=== PATIENT | male | born 1965 | race Caucasian/White ===

== ENCOUNTER 2018-09-08 19:46 | Emergency (ER) | payer OTHER, SELFPAY ==
[2018-09-08 19:50] VITALS: BP 143/91; PULSE 85; PULSE 88; RESP 17; TEMP 36.3; O2SAT 95; BMI 31.6
--- NOTE | 2018-09-08 19:54 | ED.RN ---
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
--- NOTE | 2018-09-08 20:36 | ED.DEP ---
ED Disposition - Plan for ED Patient: Instructions: ED Concussion Referrals: Corporate,[facility] [GROUP OF PHYSICIANS] -
--- NOTE | 2018-09-08 20:37 | DCINST.ED_ITS ---
ED Disposition - Plan for ED Patient: Instructions: ED Concussion Referrals: Corporate,[facility] [GROUP OF PHYSICIANS] -
[2018-09-08 20:55] VITALS: BP 136/76; PULSE 76; RESP 18; O2SAT 98
--- NOTE | 2018-09-08 20:55 | ED.RN ---
PT CLARIFIED WITH EMPLOYER THAT HE DOES NOT NEED DRUG TESTING.
== END 2018-09-08 20:56 | disposition home or self-care (01) ==
LOC: ED 20:39
PROVIDERS: Emergency Provider Emergency Medicine
DX: S06.0X0A Concussion without loss of consciousness, initial encounter (principal); W22.8XXA Striking against or struck by other objects, initial encounter; Z87.891 Personal history of nicotine dependence
CPT/HCPCS: 99282

== ENCOUNTER 2018-09-30 16:27 | Emergency (ER) | payer BC, SELFPAY ==
[2018-09-30 16:28] VITALS: BP 147/101; PULSE 83; RESP 16; TEMP 37.4; O2SAT 95; BMI 30.8
--- NOTE | 2018-09-30 16:58 | ED.VIS.GEN ---
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 no allergy sx, cp, sob, peripheral edema. Narrative: Patient states for couple weeks he has had occasional bouts of coughing fits where he has trouble stopping coughing. Today was the worst, he was at work when it occurred, he works at [employer] and not in an industrial setting. His episode lasted 3-5 minutes, he had an episode of emesis associated with gagging because of inability to stop coughing. He denies any shortness of breath in the past couple weeks, or dyspnea with exertion or orthopnea. No peripheral swelling. No chest pains. His cough is been nonproductive when it occurs, which is not every day. He denies any sneezing, watery eyes, redness, nasal congestion, sore throat, earache. He states he accidentally neglected to refill his blood pressure medicine and has not taken it in 1 to 2 months. When he was seen by the house physician today, they checked his blood pressure, it was in the 140s, he seemed malaised and they sent him to the ER for further evaluation. He has a history of smoking long ago, he states for 10 years or less, he does not think he smoked very much per day, sometimes they were cigars, he states I did not like to inhale. 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 Saw his PCP at a routine visit yesterday and forgot to mention these coughing issues. States he used to be on an BASHIR inhibitor and it was discontinued as a result of coughing, to some type of blood pressure medicine that ends in sartan, suggesting an ARB, that he is on now but has missed. - Past Medical History (1) HTN (hypertension) Status: Chronic (2) Hyperlipidemia Status: Chronic (3) Prediabetes Status: Chronic Past Medical History - Allergies and Home Meds Allergies/Adverse Reactions: Allergies No Known Allergies Allergy (Verified 09/30/18 16:31) Primary Care Physician: [facility] Doctor,Out of [Primary Care Provider] - 3-5 Days if not improving ([facility]) Smoking Status: Former smoker Alcohol: None Drugs: None Review of Systems General: Denies: Chills, Fever, Sweats Eyes: Denies: Visual changes - bilaterally, Diplopia ENT: Denies: Bilateral ear pain, Rhinorrhea, Sore throat Cardiovascular: Denies: Chest pain, Palpitations Respiratory: Reports: Cough. Denies: Dyspnea, Dyspnea on exertion, Orthopnea, Paroxysmal nocturnal dyspnea Gastrointestinal: Denies: Abdominal pain, Nausea, Vomiting, Diarrhea, Melena, Hematochezia Genitourinary: Denies: Dysuria, Hematuria, Frequency Musculoskeletal: Denies: Myalgias, Arthralgias, Neck pain, Back pain, Swelling, Extremity Pain Skin: Denies: Rash, Wounds Neurological: Denies: Headache, Weakness, Numbness Physical Exam Vital Signs/Narrative: Vital Signs Temp Pulse Resp BP Pulse Ox 09/30/18 16:28 99.4 F H 83 16 147/101 H 95 Inital Vital Signs reviewed: Yes General: Well nourished, Well developed, No Acute Distress Head: Normocephalic, Atraumatic Eyes: Perrl, EOMI ENT: Moist mucous membranes, No rhinorrhea, TM's clear. Negative for: Nasal congestion, Sinus tenderness Neck: Supple, Nontender, No lymphadenopathy - including no palpable Virchow's nodes, No JVD Cardiovascular: Regular rate, Regular rhythm, No murmurs Respiratory: No distress, CTA bilaterally, Chest nontender Back: Nontender, Normal Inspection Extremities: Nontender, No edema. Negative for: Calf Tenderness Skin: Normal color, No rash, No Trauma Neurological: Alert, Oriented x3, Cranial nerves II-XII grossly intact, Normal Strength, Normal Sensation Psychological: Normal affect, Normal Mood Diagnostic/Tx/Re-eval Clinical Impression(s) from Imaging Studies Chest X-Ray 09/30/18 17:10 IMPRESSION: No acute cardiopulmonary disease. Electronically Signed: Emanuel Bean DO at 17:23 EDT Tel [phone], Service support , - Medical Decision Making Chest x-ray is unremarkable. There is no sign of mediastinal fullness, mass, infiltrate. I do not think he is having any acute coronary event or decompensated congestive heart failure. I think he is safe to be discharged to follow-up with his primary care doctor for persistent symptoms. He is comfortable with this plan. Differential includes viral infection, allergic phenomena, environmental irritant in addition to mass, other chronic lung diseases. ED Disposition - Plan for ED Patient: Disposition: Home or Assisted Living Diagnosis: Cough Instructions: ED URI Viral Referrals: [facility] Doctor,Out of [Primary Care Provider] - 3-5 Days if not improving ([facility])
--- NOTE | 2018-09-30 17:02 | ED.DCSUM_ITS ---
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 no allergy sx, cp, sob, peripheral edema. Narrative: Patient states for couple weeks he has had occasional bouts of coughing fits where he has trouble stopping coughing. Today was the worst, he was at work when it occurred, he works at [employer] and not in an industrial setting. His episode lasted 3-5 minutes, he had an episode of emesis associated with gagging because of inability to stop coughing. He denies any shortness of breath in the past couple weeks, or dyspnea with exertion or orthopnea. No peripheral swelling. No chest pains. His cough is been nonproductive when it occurs, which is not every day. He denies any sneezing, watery eyes, redness, nasal congestion, sore throat, earache. He states he accidentally neglected to refill his blood pressure medicine and has not taken it in 1 to 2 months. When he was seen by the house physician today, they checked his blood pressure, it was in the 140s, he seemed malaised and they sent him to the ER for further evaluation. He has a history of smoking long ago, he states for 10 years or less, he does not think he smoked very much per day, sometimes they were cigars, he states I did not like to inhale. 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 Saw his PCP at a routine visit yesterday and forgot to mention these coughing issues. States he used to be on an BASHIR inhibitor and it was discontinued as a result of coughing, to some type of blood pressure medicine that ends in sartan, suggesting an ARB, that he is on now but has missed. - Past Medical History (1) HTN (hypertension) Status: Chronic (2) Hyperlipidemia Status: Chronic (3) Prediabetes Status: Chronic Past Medical History - Allergies and Home Meds Allergies/Adverse Reactions: Allergies No Known Allergies Allergy (Verified 09/30/18 16:31) Primary Care Physician: [facility] Doctor,Out of [Primary Care Provider] - 3-5 Days if not improving ([facility]) Smoking Status: Former smoker Alcohol: None Drugs: None Review of Systems General: Denies: Chills, Fever, Sweats Eyes: Denies: Visual changes - bilaterally, Diplopia ENT: Denies: Bilateral ear pain, Rhinorrhea, Sore throat Cardiovascular: Denies: Chest pain, Palpitations Respiratory: Reports: Cough. Denies: Dyspnea, Dyspnea on exertion, Orthopnea, Paroxysmal nocturnal dyspnea Gastrointestinal: Denies: Abdominal pain, Nausea, Vomiting, Diarrhea, Melena, Hematochezia Genitourinary: Denies: Dysuria, Hematuria, Frequency Musculoskeletal: Denies: Myalgias, Arthralgias, Neck pain, Back pain, Swelling, Extremity Pain Skin: Denies: Rash, Wounds Neurological: Denies: Headache, Weakness, Numbness Physical Exam Vital Signs/Narrative: Vital Signs Temp Pulse Resp BP Pulse Ox 09/30/18 16:28 99.4 F H 83 16 147/101 H 95 Inital Vital Signs reviewed: Yes General: Well nourished, Well developed, No Acute Distress Head: Normocephalic, Atraumatic Eyes: Perrl, EOMI ENT: Moist mucous membranes, No rhinorrhea, TM's clear. Negative for: Nasal congestion, Sinus tenderness Neck: Supple, Nontender, No lymphadenopathy - including no palpable Virchow's nodes, No JVD Cardiovascular: Regular rate, Regular rhythm, No murmurs Respiratory: No distress, CTA bilaterally, Chest nontender Back: Nontender, Normal Inspection Extremities: Nontender, No edema. Negative for: Calf Tenderness Skin: Normal color, No rash, No Trauma Neurological: Alert, Oriented x3, Cranial nerves II-XII grossly intact, Normal Strength, Normal Sensation Psychological: Normal affect, Normal Mood Diagnostic/Tx/Re-eval Clinical Impression(s) from Imaging Studies Chest X-Ray 09/30/18 17:10 IMPRESSION: No acute cardiopulmonary disease. Electronically Signed: Emanuel Bean DO at 17:23 EDT Tel [phone], Service support , - Medical Decision Making Chest x-ray is unremarkable. There is no sign of mediastinal fullness, mass, infiltrate. I do not think he is having any acute coronary event or decompensated congestive heart failure. I think he is safe to be discharged to follow-up with his primary care doctor for persistent symptoms. He is comfortable with this plan. Differential includes viral infection, allergic phenomena, environmental irritant in addition to mass, other chronic lung diseases. ED Disposition - Plan for ED Patient: Disposition: Home or Assisted Living Diagnosis: Cough Instructions: ED URI Viral Referrals: [facility] Doctor,Out of [Primary Care Provider] - 3-5 Days if not improving ([facility])
[2018-09-30 17:09] VITALS: O2SAT 96
--- NOTE | 2018-09-30 17:10 | RAD_ITS ---
STUDY: X-RAY CHEST REASON FOR EXAM: Male, 53 years old. Cough. TECHNIQUE: PA and lateral views of the chest. COMPARISON: February 09, 2016. FINDINGS: The lungs are clear and expanded. There is no demonstrated pleural abnormality. Normal size heart. Normal mediastinum and david. Normal visualized pulmonary arteries. Normal visualized aortic arch and descending thoracic aorta. Normal visualized thoracic spine. Normal visualized ribs, clavicles, and shoulders. There is no demonstrated abnormality of the visualized soft tissue structures of the upper abdomen. RAD/Chest PA and Lateral IMPRESSION: No acute cardiopulmonary disease. Electronically Signed: Emanuel Bean DO at 17:23 EDT Tel [phone], Service support ,
--- NOTE | 2018-09-30 18:16 | ED.RN ---
DISCHARGE INSTRUCTIONS GIVEN TO AND REVIEWED WITH PATIENT, PATIENT DENIES QUESTIONS OR CONCERNS AND VOICES UNDERSTANDING OF DISHCARGE INSTRUCTIONS. PT AMBULATES OUT OF ROOM WITHOUT DIFFICULTY.
== END 2018-09-30 18:17 | disposition home or self-care (01) ==
PROVIDERS: Emergency Provider Emergency Medicine
DX: R05 Cough (principal); I10 Essential (primary) hypertension; E78.5 Hyperlipidemia, unspecified; R73.03 Prediabetes; Z87.891 Personal history of nicotine dependence
CPT/HCPCS: 71046; 99282

== ENCOUNTER 2020-01-10 08:44 | Outpatient (RCR) | payer OTHER, SELFPAY ==
[2019-12-19 15:30] VITALS: BMI 30.8
--- NOTE | 2020-01-11 07:23 | HP.FCE ---
Floor (Occasional 1-33% of Day): 100# Floor (Frequent 34-66% of Day): 50# Floor (Constant 67-100% of Day): 20# Floor PDL: Heavy Knee (Occasional 1-33% of Day): 100# Knee (Frequent 34-66% of Day): 50# Knee (Constant 67-100% of Day): 20# Knee PDL: Heavy Waist (Occasional 1-33% of Day): 100# Waist (Frequent 34-66% of Day): 50# Waist (Constant 67-100% of Day): 20# Waist PDL: Heavy Shoulder (Occasional 1-33% of Day): 55# Shoulder (Frequent 34-66% of Day): 27# Shoulder (Constant 67-100% of Day): 12# Shoulder PDL: Medium Overhead (Occasional 1-33% of Day): 45# Overhead (Frequent 34-66% of Day): 22# Overhead (Constant 67-100% of Day): 9# Overhead PDL: Medium Comments: Pt demo good lifting mechanics with lift wt. and carry Bending: Frequent Ability (34-66% of day) Squatting: Frequent Ability (34-66% of day) Reaching out: Frequent Ability (34-66% of day) Reaching up: Frequent Ability (34-66% of day) Walking: Frequent Ability (34-66% of day) Standing: Frequent Ability (34-66% of day) Duration Sedentary Sedentary Light Light Light Medium Medium Medium Heavy Very Heavy Heavy Occasional (0-33% of day) Frequent (34-66% of day) Constant (67-100% of day) 10 # Negligible Negligible 15 # 8 # Negligible 20 # 10# Negli. 35 # 18 # 7 # 50 # 25 # 10 # 75 # 100 # >100 # 38 # 50 # >50 # 15 # 20 # >20 # Height: 1.78 m Weight:: 104.326 kg Hand Dominance: Right Medical History Including Restrictions: This 54-year-old male reports he does not know family hx as he was adopted. pt states he takes medication for high blood pressure and cholesterol. pt reports he does not have any further medical condition. Pt states he was sent to the [facility] because his work was worried about his mental status, possible dehydrated. pt states he feels he is in good health. Diagnoses: High blood pressure. Baltazar cholesterol. eczema Symptoms: Denies Pain: 0/10 Work History: This 54-year-old male was seen for FCE. pt states he works for the [employer]. Pt states he has worked there 4 years. 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 pt states he helps assist keeping cottages organizes, and kids on tasks. pt states he monitors choirs the children perform and keeps track, so the boys get allowance at the end of the month. He oversees money for the kids- might plan movie night. pt states he works 40 hours a week- states his normal shift is 2:30-10:30pm Behavioral: pt speaking quickly during assessment, picking at his left wrist as his eczema is flaring up. pt rocking back and forth. Pt did express that he was a little anxious. ADLS: This 54-year-old male reports he lives with his and two sons in two story home. Pt states he is ind. with ADLs and IADls. Pt reports he drives ind. pt states he does the cooking/cleaning son does yard work. pt states does most of the shopping but state she does help. pt reports he is independent with ALDs and IADLs. Physical Examination: pt demo with red dry flaking skin on left wrist/thumb pt was picking at with right hand ROM: Pt demo all ROM WNL Strength: pt demo MMT 5/5 grossly throughout Right Small Business Consultant Strength Average: 123.33 Right Small Business Consultant Strength Percentile: 89% Left Small Business Consultant Strength Average: 115.00 Left Small Business Consultant Strength Percentile: 90% Right Lateral Pinch Average: 27.66 Right Lateral Pinch Percentile: >90% Left Lateral Pinch Average: 24.00 Left Lateral Pinch Percentile: 90% Right Tripod Pinch Average: 27.33 Right Tripod Pinch Percentile: >90% Left Tripod Pinch Average: 18.66 Left Tripod Pinch Percentile: 75% Sensation: Denies Fine Motor: Denies Balance: No loss of balance during assessment Bending: pt demo the ability to bend forward three times, ten times and ten times rapidly pt demo the ability to perform bending on a frequent ability. Squatting: pt demo the ability to squat three times, ten times and ten times rapidly. pt can squat on a frequent ability Kneeling: pt demo the ability to kneel three, ten times and ten times rapidly with good ability. pt can kneel on a frequent ability Reaching out/up: pt demo the ability to reach out/up three times, ten times and ten times rapidly. pt demo the ability to perform reaching up/out on a frequent ability Walking: pt demo the ability to ambulate with a reciprocal gait pattern at a fast pace for 15 min with no difficulty. pt can ambulate on a frequent ability Standing: pt demo the ability to stand for 10min pt did not move his feet or shift his body weight but did swing arms during first 2 min than placed hands in pockets. pt did states he would like to walk around vs stand but did fine standing. pt can stand on a frequent ability Sitting: pt demo the ability to sit for 30 min with no expressed or apparent discomfort. Pt can sit on a frequent ability Climbing Stairs: Pt demo the ability to ascend/descend to steps with a reciprocal step pattern without difficulty Floor Lift: Pt demo the ability to lift 100#from this level with good ability and good lifting mechanics Knee Lift: Pt demo the ability to lift 100# from this level with good ability and good lifting mechanics Waist Lift: Pt demo the ability to lift 100# from this level with good ability and good lifting mechanics Shoulder Lift: Pt demo the ability to lift 55# from this level with good ability and good lifting mechanics Overhead Lift: Pt demo the ability to lift 45# from this level with good ability and good lifting mechanics Carrying: pt demo the ability to carry 65# for 50 feet with good ability Comments: Pt demo the ability to perform lifting and carry with good ability and good lifting mechanics
--- NOTE | 2020-05-07 12:49 | HP.OT.NRP ---
MANDEEP Morgan RUBY was seen in my office for initial evaluation on . The following Plan of Care was established for this patient: This patient was last seen in our office 01/10/20. Pertinent comments regarding their Occupational therapy will appear below: pt seen for FCE only. At this point I will be discontinuing this patient from occupational therapy. I would be happy to see this patient again in the future if found appropriate by the physician. Thank you! Alie Walsh, OTR/L, CHT
== END 2020-01-10 19:00 | disposition home or self-care (01) ==
LOC: OT 08:44
PROVIDERS: Referring Provider Physician Assistant Surgical; Visit Provider Physician Assistant Surgical
DX: Z02.89 Encounter for other administrative examinations (principal)
CPT/HCPCS: 97750

== ENCOUNTER 2020-05-22 21:49 | Emergency (ER) | payer OTHER, SELFPAY ==
[2019-12-19 15:30] VITALS: BMI 30.8
[2020-05-22 21:50] VITALS: BP 161/90; PULSE 90; RESP 18; TEMP 36.3; O2SAT 96; BMI 33.0
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
[2020-05-22 22:37] VITALS: RESP 16
== END 2020-05-22 22:37 | disposition home or self-care (01) ==
LOC: ED 22:32
PROVIDERS: Emergency Provider Emergency Medicine
DX: S09.90XA Unspecified injury of head, initial encounter (principal); Y04.0XXA Assault by unarmed brawl or fight, initial encounter; Y93.89 Activity, other specified; Y92.119 Unspecified place in children's home and orphanage as the place of occurrence of the external cause; Y99.0 Civilian activity done for income or pay; M54.2 Cervicalgia
CPT/HCPCS: 99282

== ENCOUNTER 2020-06-27 14:09 | Outpatient (RCR) | payer BC, SELFPAY | END 2020-06-27 23:59 | LOC: IMMUN 14:09 | PROVIDERS: Visit Provider Family Medicine | DX: Z23 Encounter for immunization (principal) | CPT/HCPCS: 0011A; 0012A; 91301 ==

== ENCOUNTER 2023-07-01 00:54 | Emergency (ER) | payer OTHER, SELFPAY ==
[2023-07-01 00:54] VITALS: BP 131/100; PULSE 100; RESP 16; TEMP 36.1; O2SAT 97; BMI 37.1
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
[2023-07-01 01:27] VITALS: BP 139/89; PULSE 75; RESP 16; O2SAT 97
== END 2023-07-01 01:28 | disposition home or self-care (01) ==
LOC: ED 01:18
PROVIDERS: Emergency Provider Emergency Medicine; Visit Provider Emergency Medicine
DX: S20.212A Contusion of left front wall of thorax, initial encounter (principal); Z87.891 Personal history of nicotine dependence; I10 Essential (primary) hypertension; E78.5 Hyperlipidemia, unspecified; Y04.1XXA Assault by human bite, initial encounter; Y93.89 Activity, other specified; Y99.0 Civilian activity done for income or pay; Y92.118 Other place in children's home and orphanage as the place of occurrence of the external cause
CPT/HCPCS: 99282

== ENCOUNTER 2024-01-07 19:00 | Emergency (ER) | payer OTHER, SELFPAY ==
[2024-01-07 19:01] VITALS: BP 142/86; PULSE 86; RESP 15; TEMP 36.4; O2SAT 95; BMI 33.2
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
[2024-01-07 19:56] VITALS: BP 141/94; PULSE 72; RESP 16; TEMP 36.7; O2SAT 97
== END 2024-01-07 20:01 | disposition home or self-care (01) ==
PROVIDERS: Emergency Provider Emergency Medicine; Visit Provider Emergency Medicine
DX: S09.90XA Unspecified injury of head, initial encounter (principal); I10 Essential (primary) hypertension; Y04.8XXA Assault by other bodily force, initial encounter; Z87.891 Personal history of nicotine dependence; M47.819 Spondylosis without myelopathy or radiculopathy, site unspecified; E78.5 Hyperlipidemia, unspecified; M10.9 Gout, unspecified
CPT/HCPCS: 99282